=== PATIENT | male | born 1945 | race Caucasian/White ===

== ENCOUNTER → 2024-07-16 | Outpatient (CLI) | payer MEDICARE, BC ==
[~2024-07-16] MED LIST: ASPIRIN E.C. 8181 MG PO; CARDIZEM CD 12120 MG PO; IBUPROFEN800 MG PO; OR USE ONLY TIMO OP; PRILOSEC 20MG20 MG PO; REFRESH TEARS 115 ML OP; ZETIA 10MG TAB10 MG PO; ZOLOFT 100MG100 MG PO
== END ==
LOC: COL.RAD 12:48
DX: K40.90 Unilateral inguinal hernia, without obstruction or gangrene, not specified as recurrent (principal)

== ENCOUNTER 2024-09-25 05:32 | Day surgery (SDC) | payer MEDICARE, BC ==
[~2024-09-25] VITALS: Ht 175.3 cm; Wt 72.1 kg
[~2024-09-25 05:32] MED LIST changes: +LR 1,000 ML IV SCH
[2024-09-25 06:31] VITALS: BP 138/80; PULSE 83; TEMP 98.1
[2024-09-25] MEDS ORDERED: FLOMAX 0.40.4 MG/CAP PO (06:38)
[2024-09-25] MEDS ORDERED: PROSCAR 5MG5 MG PO (06:38)
[2024-09-25] MEDS ORDERED: MIRALAX PA17 GM/Dose PO (06:38)
[2024-09-25] MEDS ORDERED: CLARITIN 1010 MG/TAB PO (06:39)
[2024-09-25] MEDS ORDERED: XALATAN EYE DROPS OU (06:40)
[2024-09-25] MEDS ORDERED: TIMOPTIC 0.5%-10 OU (06:40)
[2024-09-25] MEDS ORDERED: TOBRADEX EYE DRO5 ML OS (06:50)
[2024-09-25] MEDS ORDERED: Lidocaine PF 2% (20 MG/ML) 5 ML VIAL ONE (07:00)
[2024-09-25] MEDS ORDERED: Ondansetron 4 MG/2 ML VIAL ONE (07:00)
[2024-09-25] MEDS ORDERED: Midazolam 2 MG/2 ML VIAL ONE (07:00)
[2024-09-25] MEDS ORDERED: dexAMETHasone 10 MG/ML VIAL ONE (07:00)
[2024-09-25] MEDS ORDERED: Succinylcholine PF 200 MG/10 ML SYRINGE IV ONE (07:01)
[2024-09-25] MEDS ORDERED: fentaNYL 50 MCG/ML 2 ML VIAL ONE (07:01)
[2024-09-25] MEDS ORDERED: Rocuronium 50 MG/5 ML Multi-Dose VIAL ONE (07:01)
[2024-09-25] MEDS ORDERED: NORCO 325 MG-51 TAB PO (07:20)
[2024-09-25] MEDS ORDERED: Ibuprofen 600 MG TAB PO PRN (07:30)
[2024-09-25] MEDS ORDERED: Acetaminophen 325 MG TAB PO PRN (07:30)
[2024-09-25] MEDS ORDERED: Ondansetron 4 MG/2 ML VIAL IV PRN ×2 (07:30→09:15)
[2024-09-25] MEDS ORDERED: Glycopyrrolate 0.2 MG/ML 1 ML VIAL ONE (07:40)
[2024-09-25] MEDS ORDERED: ePHEDrine 50 MG/ML VIAL ONE (07:41)
[2024-09-25] MEDS ORDERED: fentaNYL 50 MCG/ML 1 ML SYRINGE/VIAL [PACU/SDC ONLY] IV PRN (09:15)
[2024-09-25] MEDS ORDERED: HYDROmorphone 1 MG/1 ML SYRINGE [PACU/SDC ONLY] IV PRN (09:15)
[2024-09-25] MEDS ORDERED: hydrALAZINE 20 MG/ML 1 ML VIAL IV PRN (09:15)
[2024-09-25 09:40] VITALS: BP 107/68; PULSE 78; TEMP 97.1
[2024-09-25 09:55] VITALS: BP 118/79; PULSE 78
--- NOTE | 2024-09-25 09:57 | NUR ---
Pt returns from procedure to [facility] bay [facility], via cart. Bedside handoff received from JOSE Nichols. VSS. at bedside. Bandaids x3 to abdomen, CDI, scrotal support in place. See EMAR for pain medications given. Pt given pudding and cranberry juice. Pt reports pain is 8 or 9/10. Denied pain while in PACU. Pt has flat affect, slow to respond, alert, oriented x4.
[2024-09-25 10:10] VITALS: BP 115/76; PULSE 68
--- NOTE | 2024-09-25 10:15 | NUR ---
Discharge instructions and education reviewed at length with patient and . Questions answered. Pt aware of his follow up appt and restrictions. Site care reinforced.
[2024-09-25 10:25] VITALS: BP 116/71; PULSE 82
--- NOTE | 2024-09-25 10:33 | NUR ---
Pt sitting up on edge of cart. Encouraged to attempt to get dressed. at bedside. Pt remains timid with movement. Encouraged that pain will start to subside and movement does help this.
--- NOTE | 2024-09-25 11:15 | NUR ---
Pt dressed at 1055, IV removed. REports improvement in pain, deneis nausea. Discharges to wifes car at 1100, denies complaints at that time. Down to car via w/c, accompanied by JOSE Stone.
== END 2024-09-25 11:00 | disposition home or self-care (01) ==
LOC: SDCO 05:32
DX: K40.30 Unilateral inguinal hernia, with obstruction, without gangrene, not specified as recurrent (principal); E78.5 Hyperlipidemia, unspecified
CPT/HCPCS: C1781; J1100; J2250; J2405; J2704; J2795; J3010; J7120